=== PATIENT | male | born 2000 | race Caucasian/White ===

== ENCOUNTER 2020-12-19 09:09 | Emergency (ER) | payer BC, SELFPAY ==
--- NOTE | 2020-12-19 09:18 | ED.GENADULT ---
HPI - General Adult General Chief complaint: Abdominal Pain Stated complaint: Stomach Pain/Tired Time Seen by Provider: 12/19/20 09:19 Source: patient and RN notes reviewed Mode of arrival: ambulatory Limitations: no limitations History of Present Illness HPI narrative: 20-year-old male presents with complaints of epigastric abdomen pain, nausea, fatigue, dry heaves for the past 4 days. Oleg reports awaken with epigastric pain that last for 2-3 hours, no pain today. Oleg initial believed symptoms was related to sinus problems took sinus medication without relief, no other treatment. No fever or chills. No vomiting or diarrhea. No flank pain. Tolerating po intake well. No exacerbating factors. Denies dysuria, hematuria, and genital bleeding. LBM on 12/18/20 normal, no blood in stool or constipation. Urine output within normal limits. The patient reports he was diagnosed with COVID-19 October 08, 2020, no recent symptoms. The patient reports he is not waiting for the results of a COVID-19 lab test. The patient reports he do not have weakness or myalgia. The patient reports he do not have a new or worsening cough or shortness of breath. Denies chest pain. The patient reports he do not have any rhinorrhea, congestion, or sore throat. Denies recent traveling. Denies concerns for COVID-19 or exposures been home with limited outdoor exposure except for essential household needs, work, and return home. At this time, patient is not suspected of having COVID-19. Some parts of this dictation were generated by voice recognition software and may contain typographical and/or grammatical inaccuracies. Related Data Allergies Allergy/AdvReac Type Severity Reaction Status Date / Time No Known Allergies Allergy Verified 12/19/20 09:18 Review of Systems Review of Systems: Narrative: CONSTITUTIONAL: Denies fever, chills, sweats. EYES: Denies visual changes, redness, discharge. ENT: Denies rhinorrhea, congestion, sore throat, otalgia. CARDIOVASCULAR: Denies chest pain, palpitations, edema. RESPIRATORY: Denies dyspnea, wheezing, cough. GASTROINTESTINAL: Complains of epigastric abdomen pain, nausea, dry heaves. Denies vomiting, diarrhea, and decrease appetite. GENITOURINARY: Denies dysuria, hematuria, abnormal discharge. SKIN: Denies rash or itching. MUSCULOSKELETAL: Denies acute back pain, joint pain, or myalgia. NEUROLOGIC: Denies numbness or focal weakness. PSYCHIATRIC: Denies anxiety or depression. All systems reviewed & are unremarkable except as noted in HPI and below. [facility] Past Medical History Medical History (Updated 12/19/20 @ 10:01 by ABRIL Gonzales) No significant past medical history Surgical History Surgical History (Updated 12/19/20 @ 10:01 by ABRIL Gonzales) No significant past surgical history Family History Family History (Updated 12/19/20 @ 10:02 by ABRIL Gonzales) Father Alive and well Mother Alive and well Social History Social History (Updated 12/19/20 @ 10:03 by ABRIL Gonzales) Smoking status: Never smoker Tobacco type: cigarettes Second hand tobacco smoke exposure: No Alcohol intake: current Substance use: never Living arrangements: dorm student housing Occupation/Education: student Gender identity (if verbalized by the patient): Male Comments At time of signature, agree with nurse past medical, surgical, social, and family history. There is relevant patient's past medical history pertinent to the presenting complaint, no relevant family history pertinent to the presenting complaint. Exam Narrative: Exam Narrative: GENERAL: This is a well-nourished, well-developed patient, in no apparent distress. Talks in full sentences without deficits and ambulates with steady gait without dyspnea. HEAD: Normocephalic, atraumatic. EYES: PERRL. Sclera clear/white. Vision is grossly intact. THROAT: Mucous membranes moist, posterior pharynx clear.
[2020-12-19 09:20] VITALS: BP 134/84; PULSE 64; RESP 16; TEMP 36.7; O2SAT 100
== END 2020-12-19 10:03 | disposition home or self-care (01) ==
PROVIDERS: Emergency Provider Nurse Practitioner Family
DX: K21.9 Gastro-esophageal reflux disease without esophagitis (principal)
CPT/HCPCS: 99213; G0463